=== PATIENT | female | born 1980 | race Caucasian/White ===

== ENCOUNTER 2019-02-06 18:39 | Emergency (ER) | payer OTHER ==
[~2019-02-06] VITALS: Ht 154.9 cm; Wt 78.5 kg
[~2019-02-06 18:39] MED LIST: MELATONIN1 MG PO; PENICILLIN V P500 MG PO; PRENATAL FORMU1 EAC1 PO; ZANTAC150 MG PO
[2019-02-06] MEDS ORDERED: BACTRIM DS TAB1 EACH PO (19:41)
[2019-02-06] MEDS ORDERED: CEPHALEXIN500 MG PO (19:41)
== END 2019-02-06 19:55 | disposition home or self-care (01) ==
LOC: ED 18:39
DX: N75.0 Cyst of Bartholin's gland (principal); F17.200 Nicotine dependence, unspecified, uncomplicated; Z88.5 Allergy status to narcotic agent; Z88.8 Allergy status to other drugs, medicaments and biological substances
CPT/HCPCS: 99282